=== PATIENT | female | born 1990 | race Caucasian/White ===

== ENCOUNTER 2021-04-16 18:00 | Emergency (ER) | payer SELFPAY ==
[2021-04-16] MEDS ORDERED: NORCO 325 MG-51 TA1 PO (20:50)
[2021-04-16] MEDS ORDERED: CYCLOBENZAPRINE10 M1 PO (20:50)
[2021-04-16 21:02] VITALS: BP 111/80
== END 2021-04-16 21:02 | disposition home or self-care (01) ==
LOC: ED 18:00
DX: M54.16 Radiculopathy, lumbar region (principal); M25.552 Pain in left hip; X50.1XXA Overexertion from prolonged static or awkward postures, initial encounter
CPT/HCPCS: J0595; J1885; J2360

== ENCOUNTER → 2021-08-01 | Outpatient (CLI) | payer SELFPAY ==
[~2021-08-01] MED LIST: CYCLOBENZAPRINE10 M1 PO; NORCO 325 MG-51 TA1 PO
== END ==
LOC: RAD 12:58
DX: R10.31 Right lower quadrant pain (principal)

== ENCOUNTER → 2023-10-16 | Outpatient (CLI) | payer BC ==
[2023-12-05 10:39] LABS: BASO # 0.07 K/mm3 (0.02-0.10); EOS # 0.15 K/mm3 (0.04-0.40); EOS % 1.6 % (1.0-5.0); HEMATOCRIT 41.5 % (37.0-47.0); LYMPH# 2.84 K/mm3 (1.50-4.00); MEAN CELL VOLUME 94 fl (78-100); MEAN CORPUSCULAR HEMOGLOBIN 32 pg (27-31); MEAN CORPUSCULAR HGB CONC 34 g/dL (33-37); NEU # 5.78 K/mm3 (1.40-6.50); PLATELET COUNT 319 K/mm3 (130-400); RED BLOOD COUNT 4.42 M/mm3 (4.10-5.30); RED CELL DISTRIBUTION WIDTH 12.2 % (11.5-14.5); WHITE BLOOD COUNT 9.7 K/mm3 (4.8-10.8)
[2023-12-05 11:32] LABS: ALBUMIN 4.2 g/dL (3.5-5.0); CALCIUM 9.8 mg/dL (8.3-10.5); TOTAL BILIRUBIN 0.3 mg/dL (0.2-1.2); TOTAL PROTEIN 7.1 g/dL (6.4-8.3)
[2023-12-05 12:11] LABS: PARTIAL THROMBOPLASTIN TIME 22.3 SECONDS (21.0-32.0); PROTHROMBIN TIME 9.4 SECONDS (9.0-12.0)
== END ==
LOC: LAB 15:20
PROVIDERS: Physician Assistant
DX: Z13.29 Encounter for screening for other suspected endocrine disorder (principal); Z13.220 Encounter for screening for lipoid disorders; K90.9 Intestinal malabsorption, unspecified; R58 Hemorrhage, not elsewhere classified